=== PATIENT | female | born 1955 | race Caucasian/White ===

== ENCOUNTER 2020-01-13 20:19 | Emergency (ER) | payer OTHER ==
[~2020-01-13] VITALS: Ht 147.3 cm; Wt 60.3 kg
[2020-01-13 20:59] VITALS: Ht 147.3 cm; Wt 60.3 kg
[2020-01-14 01:02] VITALS: BP 110/63
== END 2020-01-14 01:04 | disposition home or self-care (01) ==
LOC: ED 20:19
DX: G43.909 Migraine, unspecified, not intractable, without status migrainosus (principal); E78.00 Pure hypercholesterolemia, unspecified
CPT/HCPCS: J1200; J2765; J7030